=== PATIENT | male | born 1980 | race African-American/Black ===

== ENCOUNTER 2016-09-23 18:19 | Emergency (ER) | payer OTHER ==
[~2016-09-23] VITALS: Ht 175.3 cm; Wt 70.0 kg
[~2016-09-23 18:19] MED LIST: FLUT1BLS PO; LURA40 PO; TIOT185 IH
[2016-09-23] MEDS ORDERED: ADV100 IH (18:28)
[2016-09-23] MEDS ORDERED: SODIUM CHLORIDE 0.9% 1,000 ML IV ONE ×2 (19:35→23:45)
[2016-09-23] MEDS ORDERED: ONDANSETRON HCL 4 MG/2 ML VIAL IVP ONE (20:00)
[2016-09-23] MEDS ORDERED: SODIUM CHLORIDE 0.9% 2,000 ML IV ONE (20:00)
[2016-09-23 20:18] LABS: BASOPHILS % (AUTO) 0.1 % (0.0-2.0); EOSINOPHILS % (AUTO) 0.2 % (1.0-6.0); HEMATOCRIT 49.7 % (41-53); LYMPHOCYTES # (AUTO) 0.9 K/uL (1.0-4.8); LYMPHOCYTES % (AUTO) 8.7 % (22.0-44.0); MEAN CORPUSCULAR HEMOGLOBIN 30.5 pg (26.0-34.0); MEAN CORPUSCULAR HGB CONC 32.3 G/dL (31.0-37.0); MEAN CORPUSCULAR VOLUME 95 fL (80-100); MONOCYTES # (AUTO) 0.4 K/uL (0.1-1.0); MONOCYTES % (AUTO) 3.8 % (2.0-9.0); NEUTROPHILS # (AUTO) 8.7 K/uL (1.8-7.7); NEUTROPHILS % (AUTO) 87.2 % (40.0-70.0); PLATELET COUNT (AUTO) 282 K/uL (150-450); RED BLOOD CELL COUNT(AUTO) 5.25 MIL/uL (4.50-5.90); RED CELL DISTRIBUTION WIDTH 14.2 % (11.5-14.5); WHITE BLOOD COUNT (AUTO) 9.9 K/uL (4.5-11.0)
[2016-09-23 20:30] LABS: ANION GAP 15 mmol/L (8-16); CALCIUM, TOTAL 10.2 mg/dL (8.8-10.5); CARBON DIOXIDE 23 mmol/L (22-29); CHLORIDE 104 mmol/L (98-107); CREATININE 1.44 mg/dL (0.60-1.30); GLOMERULAR FILTR. RATE CALC > 60 mL/min (>60); POTASSIUM 4.4 mmol/L (3.5-5.1); SODIUM SERUM 142 mmol/L (136-145); UREA NITROGEN, BLOOD 22 mg/dL (7-18)
[2016-09-23 20:37] LABS: ALANINE AMINOTRANSFERASE 106 U/L (12-78); ALBUMIN 4.6 g/dL (3.4-5.0); ASPARTATE AMINOTRANSFERASE 92 U/L (15-37); BILIRUBIN,TOTAL 1.6 mg/dL (0.1-1.0)
[2016-09-23 20:38] LABS: RBC MORPHOLOGY COMMENT NORMAL RBC MORPH
[2016-09-23] MEDS ORDERED: LORazepam 2 MG/ML VIAL IVP ONE (21:00)
[2016-09-23 21:02] LABS: LACTIC ACID 2.6 mmol/L (0.4-2.0)
[2016-09-23 21:41] LABS: APPEARANCE,URINE CLEAR (CLEAR); GLUCOSE, URINE (UA) NEGATIVE (NEGATIVE); KETONES,URINE >=80 mg/dL (NEGATIVE); LEUKOCYTE ESTERASE ,URINE NEGATIVE (NEGATIVE); OCCULT BLOOD,URINE NEGATIVE (NEGATIVE); PH,URINE 8.5 (5.0-8.0); PROTEIN,URINE SEE CONFIRM (NEGATIVE)
[2016-09-23 21:48] LABS: RBC,URINE 0-2 /HPF (0-2); SQUAMOUS EPITHELIAL CELL,UR Rare /LPF (None Seen); SULFOSALICYLIC ACID,URINE 1+ (Negative)
[2016-09-23 22:13] LABS: REFLEX LACTIC ACID? YES YES
[2016-09-23 22:30] LABS: CREATINE KINASE MB 2.4 ng/mL (0-5)
[2016-09-23 22:31] LABS: CREATINE KINASE, TOTAL 2189 U/L (39-308)
[2016-09-24] MEDS ORDERED: ALBUTEROL SULFATE HFA 90 MCG/PUFF 8 GM INHALER IH ONE (00:15)
[2016-09-24 00:35] VITALS: BP 131/81
== END 2016-09-24 00:42 | disposition home or self-care (01) ==
LOC: EMS 18:25
DX: R10.84 Generalized abdominal pain (principal); R07.89 Other chest pain; E86.0 Dehydration; J45.909 Unspecified asthma, uncomplicated; F12.90 Cannabis use, unspecified, uncomplicated; Z88.8 Allergy status to other drugs, medicaments and biological substances
CPT/HCPCS: 36415; 71010; 80053; 80307; 81001; 81002; 82140; 82550; 82553; 83605; 83690; 84484; 85025; 93005; 94640; 96361; 96374; 96375; 99285; G0480; J2060; J2405; J7030 ×2; J3535

== ENCOUNTER 2016-09-25 07:23 | Emergency (ER) | payer OTHER ==
[~2016-09-25] VITALS: Ht 175.3 cm; Wt 72.7 kg
[~2016-09-25 07:23] MED LIST changes: +ADV100 IH
[2016-09-25 07:33] VITALS: BP 120/77
[2016-09-25] MEDS ORDERED: ALBUTEROL SULFATE 2.5 MG/0.5 ML NEB SOLUTION NEB ONE (07:45)
[2016-09-25] MEDS ORDERED: IPRATROPIUM BROMIDE 0.5 MG/2.5 ML NEB SOLUTION NEB ONE (07:45)
== END 2016-09-25 10:08 | disposition left against medical advice (07) ==
LOC: EMS 07:24
DX: R06.02 Shortness of breath (principal); R11.2 Nausea with vomiting, unspecified; J45.909 Unspecified asthma, uncomplicated; Z53.21 Procedure and treatment not carried out due to patient leaving prior to being seen by health care provider
CPT/HCPCS: 94060; 94640

== ENCOUNTER 2017-04-29 23:17 | Emergency (ER) | payer OTHER ==
[~2017-04-29] VITALS: Ht 175.3 cm; Wt 75.0 kg
[~2017-04-29 23:17] MED LIST changes: -FLUT1BLS PO; -LURA40 PO; -TIOT185 IH
[2017-04-29] MEDS ORDERED: PROM25 PO (23:28)
[2017-04-29] MEDS ORDERED: NAPR-58 PO (23:28)
[2017-04-29] MEDS ORDERED: MONT10TA21 PO (23:28)
[2017-04-29] MEDS ORDERED: LURA40 PO (23:28)
[2017-04-30 04:19] LABS: BASOPHILS % (AUTO) 0.3 % (0.0-2.0); HEMATOCRIT 45.8 % (41-53); LYMPHOCYTES % (AUTO) 47.1 % (22.0-44.0); MEAN CORPUSCULAR HEMOGLOBIN 32.7 pg (26.0-34.0); MEAN CORPUSCULAR HGB CONC 34.8 G/dL (31.0-37.0); MEAN CORPUSCULAR VOLUME 94 fL (80-100); MONOCYTES # (AUTO) 0.4 K/uL (0.1-1.0); MONOCYTES % (AUTO) 5.9 % (2.0-9.0); NEUTROPHILS # (AUTO) 2.4 K/uL (1.8-7.7); NEUTROPHILS % (AUTO) 38.7 % (40.0-70.0); PLATELET COUNT (AUTO) 237 K/uL (150-450); RED BLOOD CELL COUNT(AUTO) 4.89 MIL/uL (4.50-5.90); RED CELL DISTRIBUTION WIDTH 13.7 % (11.5-14.5)
[2017-04-30 04:21] LABS: WHITE BLOOD COUNT (AUTO) 7.9 K/uL (4.5-11.0)
[2017-04-30 04:29] LABS: ANION GAP 7 mmol/L (8-16); CALCIUM, TOTAL 9.9 mg/dL (8.8-10.5); CARBON DIOXIDE 28 mmol/L (22-29); CHLORIDE 104 mmol/L (98-107); CREATININE 1.35 mg/dL (0.60-1.30); GLOMERULAR FILTR. RATE CALC > 60 mL/min (>60); POTASSIUM 3.8 mmol/L (3.5-5.1); SODIUM SERUM 139 mmol/L (136-145); UREA NITROGEN, BLOOD 24 mg/dL (7-18)
[2017-04-30 04:36] LABS: ALANINE AMINOTRANSFERASE 47 U/L (12-78); ALBUMIN 4.4 g/dL (3.4-5.0); ASPARTATE AMINOTRANSFERASE 32 U/L (15-37); BILIRUBIN,TOTAL 0.6 mg/dL (0.1-1.0); TOTAL PROTEIN, SERUM 8.5 g/dL (6.4-8.2)
[2017-04-30 05:15] VITALS: BP 122/82
[2017-04-30] MEDS ORDERED: QUEtiapine FUMARATE 100 MG TABLET PO ONE (05:15)
[2017-04-30] MEDS ORDERED: DiphenhydrAMINE HCL 25 MG CAPSULE PO ONE (05:15)
== END 2017-04-30 05:28 | disposition home or self-care (01) ==
LOC: EMS 23:18
DX: F20.0 Paranoid schizophrenia (principal); F32.9 Major depressive disorder, single episode, unspecified; J45.909 Unspecified asthma, uncomplicated
CPT/HCPCS: 36415; 80053; 80307; 85025; 99284; G0480

== ENCOUNTER 2018-05-21 07:03 | Emergency (ER) | payer OTHER ==
[~2018-05-21] VITALS: Ht 175.3 cm; Wt 77.3 kg
[~2018-05-21 07:03] MED LIST changes: +LURA40 PO; +MONT10TA21 PO; +NAPR-58 PO; +PROM25 PO
[2018-05-21] MEDS: SODIUM CHLORIDE 0.9% 1,000 ML IV ONE (09:43)
[2018-05-21] MEDS: FAMOTIDINE 10 MG/ML 2 ML VIAL IVP ONE (09:43)
[2018-05-21] MEDS: PB/HYOSCY/ATR/SCOP/LIDO/MAALOX 55 ML BOTTLE PO ONE (09:43)
[2018-05-21] MEDS: ONDANSETRON HCL 4 MG/2 ML VIAL IVP ONE (09:43)
[2018-05-21 10:21] LABS: BASOPHILS % (AUTO) 0.4 % (0.0-2.0); EOSINOPHILS % (AUTO) 0 % (1.0-6.0); HEMATOCRIT 47.9 % (41-53); HEMOGLOBIN 16.2 g/dL (13.5-17.5); LYMPHOCYTES # (AUTO) 0.8 K/uL (1.0-4.8); LYMPHOCYTES % (AUTO) 8.7 % (22.0-44.0); MEAN CORPUSCULAR HGB CONC 33.8 G/dL (31.0-37.0); MEAN CORPUSCULAR VOLUME 95 fL (80-100); MONOCYTES # (AUTO) 0.3 K/uL (0.1-1.0); NEUTROPHILS # (AUTO) 8.3 K/uL (1.8-7.7); PLATELET COUNT (AUTO) 303 K/uL (150-450); RED BLOOD CELL COUNT(AUTO) 5.06 MIL/uL (4.50-5.90); RED CELL DISTRIBUTION WIDTH 13.7 % (11.5-14.5)
[2018-05-21 10:24] LABS: NEUTROPHILS % (AUTO) 87.9 % (40.0-70.0)
[2018-05-21 10:36] LABS: ANION GAP 10 mmol/L (8-16); CALCIUM, TOTAL 10.4 mg/dL (8.8-10.5); CARBON DIOXIDE 26 mmol/L (22-29); CHLORIDE 103 mmol/L (98-107); CREATININE 1.41 mg/dL (0.60-1.30); GLOMERULAR FILTR. RATE CALC > 60 mL/min (>60); GLUCOSE,RANDOM 120 mg/dL (70-110); POTASSIUM 4.2 mmol/L (3.5-5.1); SODIUM SERUM 139 mmol/L (136-145); UREA NITROGEN, BLOOD 14 mg/dL (7-18)
[2018-05-21 10:48] LABS: B-TYPE NATRIURETIC PEPTIDE 60 pg/mL (0-100)
[2018-05-21 11:02] LABS: ALANINE AMINOTRANSFERASE 50 U/L (12-78); ALBUMIN 4.7 g/dL (3.4-5.0); ALKALINE PHOSPHATASE 60 U/L (46-116); ASPARTATE AMINOTRANSFERASE 70 U/L (15-37); BILIRUBIN,TOTAL 1.2 mg/dL (0.1-1.0); LIPASE 97 U/L (73-393)
[2018-05-21 11:10] LABS: CREATINE KINASE, TOTAL ONLY 1488 U/L (39-308)
[2018-05-21 11:23] VITALS: BP 121/77
== END 2018-05-21 11:41 | disposition home or self-care (01) ==
LOC: EMS 07:04
DX: K29.70 Gastritis, unspecified, without bleeding (principal); F32.9 Major depressive disorder, single episode, unspecified; F20.9 Schizophrenia, unspecified; F41.9 Anxiety disorder, unspecified; J45.909 Unspecified asthma, uncomplicated; Z88.8 Allergy status to other drugs, medicaments and biological substances
CPT/HCPCS: 80053; 82550; 83690; 83880; 84484; 85025; 93005; 96361; 96374; 96375; 99285; J2405; J3490; J7030

== ENCOUNTER 2019-01-27 08:43 | Emergency (ER) | payer OTHER ==
[~2019-01-27] VITALS: Ht 175.3 cm; Wt 77.3 kg
[~2019-01-27 08:43] MED LIST changes: +NAPR-1025 PO; -NAPR-58 PO
[2019-01-27] MEDS ORDERED: IPRATROPIUM BROMIDE 0.5 MG/2.5 ML NEB SOLUTION NEB ONE ×2 (09:15→09:45)
[2019-01-27] MEDS ORDERED: ALBUTEROL SULFATE 2.5 MG/0.5 ML NEB SOLUTION NEB ONE ×2 (09:15→09:45)
[2019-01-27] MEDS ORDERED: ALBUTEROL SULFATE HFA 90 MCG/PUFF 8 GM INHALER IH ONE (10:15)
[2019-01-27 10:18] VITALS: BP 129/81
== END 2019-01-27 10:20 | disposition home or self-care (01) ==
LOC: EMS 08:48
DX: J45.909 Unspecified asthma, uncomplicated (principal); M25.511 Pain in right shoulder; F41.9 Anxiety disorder, unspecified; F32.9 Major depressive disorder, single episode, unspecified; F20.9 Schizophrenia, unspecified; Z79.899 Other long term (current) drug therapy; Z88.8 Allergy status to other drugs, medicaments and biological substances
CPT/HCPCS: 94640; J3535